=== PATIENT | female | born 1975 | race Two or more races ===

== ENCOUNTER 2020-06-24 16:10 | Emergency (ER) | payer MEDICAID ==
[~2020-06-24] VITALS: Ht 154.9 cm; Wt 50.0 kg
[2020-06-24] MEDS ORDERED: IBUPROFEN 600MG TABLET PO STA (17:26)
[2020-06-24 19:13] VITALS: BP 118/58
== END 2020-06-24 19:14 | disposition home or self-care (01) ==
LOC: ER 16:10
DX: S80.02XA Contusion of left knee, initial encounter (principal); V49.49XA Driver injured in collision with other motor vehicles in traffic accident, initial encounter; Y93.89 Activity, other specified; Y92.89 Other specified places as the place of occurrence of the external cause; Y99.8 Other external cause status; Z88.0 Allergy status to penicillin
CPT/HCPCS: 73562; 99283